=== PATIENT | female | born 1975 ===

== ENCOUNTER → 2022-01-13 17:08 | Outpatient (REF) | payer MEDICAID, SELFPAY ==
[2022-01-13 18:16] LABS: ALB/GLOB Ratio 0.9 RATIO (0.9-2.4); AST(SGOT) 22 U/L (15-37); Alanine Aminotransfer ALT/SGPT 22 U/L (13-56); Albumin, Serum 3.6 g/dL (3.2-5.0); Alkaline Phosphatase 170 U/L (45-117); Anion Gap 7 (5-15); BUN 12 mg/dL (7-18); BUN/Creat Ratio 16.4 RATIO (10-20); Calcium,Total 9.1 mg/dL (8.5-10.1); Chloride 102 mmol/L (98-107); Creatinine, Serum 0.73 mg/dL (0.55-1.02); EST Glomerular Filtration Rate 90 mL/min (>60); Est Glom Filt Rate - Afr Amer 109 mL/min (>60); Free T3 3.7 pg/mL (2.18-3.98); Globulin 4.1 g/dL (2.2-4.2); Glucose 98 mg/dL (74-106); Potassium 4.4 mmol/L (3.5-5.1); Protein, Total 7.7 g/dL (6.4-8.2); Sodium Level 139 mmol/L (136-145); T4 Free Direct 0.96 ng/dL (0.76-1.46); T4 Total, Thyroxin 10.9 ug/dL (4.8-13.9); Thyroid Stim Hormone (TSH) 2.51 uIU/mL (0.358-3.74)
== END ==
LOC: LABSPEC 17:08
PROVIDERS: Visit Provider Nurse Practitioner Family
DX: E04.1 Nontoxic single thyroid nodule (principal); G89.29 Other chronic pain
CPT/HCPCS: 80053; 84436; 84439; 84443; 84481